=== PATIENT | female | born 1995 | race Caucasian/White ===

== ENCOUNTER 2023-05-14 11:22 | Emergency (ER) | payer MEDICAID ==
[~2023-05-14] VITALS: Ht 154.9 cm; Wt 74.8 kg
[2023-05-14 12:33] VITALS: TEMP 98.2
[2023-05-14 12:59] LABS: PREGNANCY TEST URINE QUAL NEGATIVE (NEGATIVE)
[2023-05-14 13:41] VITALS: BP 136/88; O2SAT 100
== END 2023-05-14 13:41 | disposition home or self-care (01) ==
LOC: ER 11:30
DX: S09.90XA Unspecified injury of head, initial encounter (principal); F41.9 Anxiety disorder, unspecified; V89.2XXA Person injured in unspecified motor-vehicle accident, traffic, initial encounter; Y93.89 Activity, other specified; Y92.89 Other specified places as the place of occurrence of the external cause; Y99.8 Other external cause status
CPT/HCPCS: 70450-TC; 84703-TC